=== PATIENT | female | born 1960 | race Caucasian/White ===

== ENCOUNTER → 2017-02-20 | Emergency (ER) | payer MEDICARE, MEDICAID ==
[2017-02-20 14:21] VITALS: BMI 22.4
[2017-02-20 14:46] VITALS: BP 105/71; PULSE 69; RESP 20; TEMP 98.4; O2SAT 95
[2017-02-20 15:34] LABS: BASO # 0.1 K/uL (0.0-0.2); BASO % 0.6 % (0.0-2.0); EOS # 0.1 K/uL (0.0-0.7); EOS % 0.6 % (0.0-4.0); HEMATOCRIT 38.2 % (34.0-47.0); LYMPH # 2.5 K/uL (1.0-4.3); LYMPH % 29.7 % (20.0-40.0); MEAN CORPUSCULAR HEMOGLOBIN 30.7 pg (27.0-31.0); MEAN CORPUSCULAR HGB CONC 33.7 g/dL (33.0-37.0); MONO # 0.6 K/uL (0.0-0.8); MONO % 6.6 % (0.0-10.0); NRBC % 0.1 % (0.0-2.0); WHITE BLOOD COUNT 8.5 K/uL (4.8-10.8)
[2017-02-20 15:35] LABS: MEAN CELL VOLUME 91.2 fL (81.0-99.0)
[2017-02-20 15:49] LABS: CHLORIDE 98 mmol/L (98-107)
[2017-02-20 15:50] LABS: POTASSIUM 3.7 mmol/L (3.6-5.2); SODIUM 139 mmol/L (132-148)
[2017-02-20 15:54] LABS: ALB/GLOB RATIO 1.1 (1.0-2.1); ALCOHOL SERUM 184 mg/dl (0-10); ALKALINE PHOSPHATASE 123 U/L (38-126); ALT/SGPT 71 U/L (9-52); AST/SGOT 85 U/L (14-36); BILIRUBIN,TOTAL 0.4 mg/dL (0.2-1.3); BLOOD UREA NITROGEN 19 mg/dL (7-17); CALCIUM 8.7 mg/dl (8.6-10.4); CARBON DIOXIDE 26 mmol/L (22-30); GFR AFRICAN-AMERICAN > 60; GLUCOSE,RANDOM 89 mg/dL (65-105); TOTAL PROTEIN 7.4 g/dL (6.3-8.3)
--- NOTE | 2017-02-20 16:55 | C.PDOC ---
History Of Present Illness 56 year old female presents to the ED with complaints of severe RUQ abdominal pain for the past 2 days. Patient states the pain radiates back with occasional vomiting. She was seen in [facility] last night for the same complaints and had a CT and US done and was told her "liver and gall bladder are swollen". It is unclear if the patient was discharged or left AMA. She reports she woke up with pain and drank alcohol which made it worse and prompted her visit. Denies diarrhea, fever, chills, back pain, or any other complaints at this time. Time Seen by Provider: 02/20/17 15:03 Chief Complaint (Nursing): Abdominal Pain History Per: Patient History/Exam Limitations: no limitations Onset/Duration Of Symptoms: Days Current Symptoms Are (Timing): Still Present Severity: Severe Location Of Pain/Discomfort: RUQ Radiation Of Pain To:: Back Quality Of Discomfort: "Pain" Associated Symptoms: Vomiting. denies: Fever, Chills, Back Pain, Urinary Symptoms Abnormal Vaginal Bleeding: No Past Medical History Reviewed: Historical Data, Nursing Documentation, Vital Signs Vital Signs: Last Vital Signs Temp 98.4 F 02/20/17 14:37 Pulse 69 02/20/17 14:37 Resp 20 02/20/17 14:37 BP 105/71 02/20/17 14:37 Pulse Ox 95 02/20/17 17:00 - Medical History PMH: Anxiety, Gastritis (NO LONGER ON MEDS), HTN, Hypercholesterolemia, Hypothyroidism, Migraine - [facility] Procedures APPLICATION OF SPLINT (02/23/15) CERVICAL SPINE X-RAY NEC (05/15/13) DX ULTRASOUND-HEAD/NECK (04/12/15) INJECT STEROID (05/15/13) INJECT/INFUSE NEC (06/28/14) INJECTION INTO JOINT (05/15/13) PERCUTAN NEEDLE BX OF THYROID GLAND (11/03/13) SPINAL CANAL INJECT NEC (05/15/13) Family History: States: Unknown Family Hx - Social History Hx Tobacco Use: No Hx Alcohol Use: Yes Hx Substance Use: No - Immunization History Hx Tetanus Toxoid Vaccination: Yes Hx Influenza Vaccination: Yes Hx Pneumococcal Vaccination: No Review Of Systems Except As Marked, All Systems Reviewed And Found Negative. Constitutional: Negative for: Fever, Chills Cardiovascular: Negative for: Chest Pain Respiratory: Negative for: Shortness of Breath Gastrointestinal: Positive for: Vomiting, Abdominal Pain (+RUQ abdominal pain radiating back). Negative for: Diarrhea Genitourinary: Negative for: Dysuria, Frequency Musculoskeletal: Negative for: Back Pain Physical Exam - Physical Exam Appears: Non-toxic, No Acute Distress Skin: Normal Color, Warm, Dry Head: Atraumatic, Normacephalic Eye(s): bilateral: Normal Inspection Oral Mucosa: Moist Chest: Symmetrical, No Deformity Cardiovascular: Rhythm Regular, No Murmur Respiratory: Normal Breath Sounds, No Accessory Muscle Use, No Rales, No Rhonchi , No Wheezing Gastrointestinal/Abdominal: Soft, Tenderness (+Mild epigastric and RUQ tenderness), No Distention, No Guarding, No Rebound Neurological/Psych: Oriented x3, Normal Speech, Normal Cognition ED Course And Treatment - Laboratory Results Result Diagrams: 02/20/17 15:22 02/20/17 15:16 O2 Sat by Pulse Oximetry: 95 (Room air) Pulse Ox Interpretation: Normal Progress Note: Abdomen Limited US and Blood work ordered and reviewed. patient treated with Ativan, Pepcid, Toradol, and Zofran. Medical Decision Making Medical Decision Making: Patient was given medication for pain and shortly after she decided to leave. Patient's father said he was be responsible for getting her home and patient signed AMA. Disposition Counseled Patient/Family Regarding: Need For Followup - Disposition Disposition: AGAINST MEDICAL ADVICE Disposition Time: 00:00 Condition: UNKNOWN - Clinical Impression Clinical Impression: Abdominal pain - Scribe Statement The provider has reviewed the documentation as recorded by the Scribe Magda Pelayo. Provider Attestation: All medical record entries made by the Baibsean were at my direction and personally dictated by me. I have reviewed the chart and agree that the record accurately reflects my personal performance of the history, physical exam, medical decision making, and the department course for this patient. I have also personally directed, reviewed, and agree with the discharge instructions and disposition.
--- NOTE | 2017-02-20 17:49 | US ---
HISTORY: RUQ abd pain COMPARISON: None. TECHNIQUE: Sonographic evaluation of the right upper quadrant of the abdomen. FINDINGS: LIVER: Measures 20.2 cm in length. Diffusely increased echogenicity of the liver parenchyma. Consistent with fatty infiltration. Smooth contour. No mass. No biliary dilatation. GALLBLADDER: Unremarkable. No gallstones. COMMON BILE DUCT: Measures 4 mm. No stones. No dilatation. PANCREAS: Limited visualization. RIGHT KIDNEY: Measures 10.7 cm in length. Normal echogenicity. No calculus, mass, or hydronephrosis. AORTA: No aneurysmal dilatation. IVC: Unremarkable. OTHER FINDINGS: None . IMPRESSION: Hepatomegaly with diffuse fatty infiltration of the liver. No evidence of cholelithiasis or cholecystitis.
== END | disposition left against medical advice (07) ==
LOC: C.ER 14:21
DX: R10.11 Right upper quadrant pain (principal)
CPT/HCPCS: 76705; 80053; 83690; 85025; 96374; 96375; 99283; G0480; J1885; J2060; J2405

== ENCOUNTER 2017-03-20 07:31 | Emergency (ER) | payer MEDICARE, MEDICAID ==
[2017-03-20 07:31] VITALS: BMI 22.4
[2017-03-20 07:38] VITALS: RESP 20
[2017-03-20] MEDS ORDERED: Oxycodone/Acetaminophen 5/325 mg Tab PO STA (08:13)
[2017-03-20] MEDS ORDERED: Oxycodone/Acetaminophen 5/325 mg Tab ONE (08:34)
--- NOTE | 2017-03-20 10:14 | C.PDOC ---
History Of Present Illness 56 y/o female presents to the ED complaining of left calf pain x 2 days. She notes that the pain started when she woke up. Patient denies any trauma/injury, chest pain, shortness of breath, fever, or other complaints. Patient reports history of similar "years ago" and states she was evaluated and found negative for DVT. Time Seen by Provider: 03/20/17 08:04 Chief Complaint (Nursing): Lower Extremity Problem/Injury History Per: Patient History/Exam Limitations: no limitations Onset/Duration Of Symptoms: Days (2), Persistent Current Symptoms Are (Timing): Still Present Recent travel outside of the [place]: No Past Medical History Reviewed: Historical Data, Nursing Documentation, Vital Signs Vital Signs: Last Vital Signs Temp 97.5 F L 03/20/17 11:23 Pulse 69 03/20/17 11:23 Resp 20 03/20/17 11:23 BP 133/88 03/20/17 11:23 Pulse Ox 96 03/20/17 13:33 - Medical History PMH: Anxiety, Gastritis (NO LONGER ON MEDS), HTN, Hypercholesterolemia, Hypothyroidism, Migraine Surgical History: No Surg Hx - [facility] Procedures APPLICATION OF SPLINT (02/23/15) CERVICAL SPINE X-RAY NEC (05/15/13) DX ULTRASOUND-HEAD/NECK (04/12/15) INJECT STEROID (05/15/13) INJECT/INFUSE NEC (06/28/14) INJECTION INTO JOINT (05/15/13) PERCUTAN NEEDLE BX OF THYROID GLAND (11/03/13) SPINAL CANAL INJECT NEC (05/15/13) Family History: States: No Known Family Hx - Social History Hx Tobacco Use: No Hx Alcohol Use: Yes Hx Substance Use: No - Immunization History Hx Tetanus Toxoid Vaccination: Yes Hx Influenza Vaccination: Yes Hx Pneumococcal Vaccination: No Review Of Systems Except As Marked, All Systems Reviewed And Found Negative. Constitutional: Negative for: Fever Cardiovascular: Negative for: Chest Pain Respiratory: Negative for: Shortness of Breath Musculoskeletal: Positive for: Leg Pain (left calf) Physical Exam - Physical Exam Appears: Non-toxic, No Acute Distress Skin: Normal Color, Warm, Dry Head: Atraumatic, Normacephalic Neck: Normal ROM Chest: Symmetrical Cardiovascular: Rhythm Regular Respiratory: Normal Breath Sounds, No Rales, No Rhonchi, No Wheezing Extremity: Normal ROM, Calf Tenderness (left), Capillary Refill (< 2 seconds), Swelling (mild, left calf), No Other (erythema) Pulses: Left Dorsalis Pedis: Normal, Right Dorsalis Pedis: Normal Neurological/Psych: Oriented x3, Normal Speech, Normal Cognition, Normal Motor, Normal Sensation ED Course And Treatment O2 Sat by Pulse Oximetry: 96 (ra) Pulse Ox Interpretation: Normal - CT Scan/US VDS Other Rad Studies (CT/US): Read By Radiologist, Radiology Report Reviewed CT/US Interpretation: Accession No. : [id number]. Patient Name / ID : GALE Rodriguez / [id number]. Exam Date : 03/20/2017 10:29:59 ( Approved ). Study Comment : Sex / Age : F / 56Y. Creator : Department, Vascular C. Dictator : Department, Vascular C. Surgical Aide : Buffing Machine Operator : Jean-Claude Cabrera MD. Approver2 : Report Date : 03/20/2017 10:58:43. My Comment : . PROCEDURE: Left Lower Extremity Venous Duplex Exam. HISTORY: Pain/swelling. PRIORS: Last exam 2015,normal. TECHNIQUE: Left common femoral, femoral, popliteal and posterior tibial, peroneal and great saphenous veins were evaluated. Flow was assessed with color Doppler, compressibility, assessment of phasic flow and augmentation response. Report prepared by ORACIO Marshall. FINDINGS: LEFT: 1. Common Femoral Vein: 1.1. Compressibility - Fully compressible: Thrombus - None : Flow - Phasic: Augmentation -Normal: Reflux - None. 2. Femoral Vein: 2.1. Compressibility - Fully compressible: Thrombus - None: Flow - Phasic: Augmentation -Normal: Reflux - None. 3. Popliteal Vein: 3.1. Compressibility - Fully compressible: Thrombus - None: Flow - Phasic: Augmentation -Normal: Reflux - None. 4. Posterior Tibial Vein: 4.1. Compressibility - Fully compressible: Thrombus - None: Flow - Phasic: Augmentation -Normal: Reflux - None. 5. Peroneal Vein: 5.1. Compressibility - Fully compressible: Thrombus - None: Flow - Phasic: Augmentation -Normal: Reflux - None. 6. Great Saphenous Vein: 6.1. Compressibility - Fully compressible: Thrombus - None: Flow - Phasic: Augmentation - Normal: Reflux - None. OTHER FINDINGS: IMPRESSION: No evidence of deep or superficial vein thrombosis of the left lower extremity with excellent venous flow. Normal valve function noted of the left side. Normal venous flow noted in the right common femoral vein. Progress Note: Patient states she cannot take NSAIDs. VDS was ordered and patient was given Percocet. Patient continues to complain of pain and is requesting stronger pain medication. Patient treated with Toradol IM and Valium PO. On reevaluation, patient reports improvement of pain. VDS negative for DVT. Patient was advised to follow up with PMD in 1-2 days and return to the ED at any time for new or concerning symptoms. Disposition - Disposition Disposition: HOME/ ROUTINE Disposition Time: 11:01 Condition: STABLE Additional Instructions: Follow up with your PMD within 1-2 days. return to ED if feel worse. Prescriptions: Ibuprofen [Motrin Tab] 600 mg PO Q8 #30 tab Famotidine [Pepcid] 20 mg PO BID #20 tab Methocarbamol [Robaxin] 2 tab PO QID #80 tab traMADol [Ultram] 50 mg PO Q6 #20 tab Instructions: Muscle Spasm (ED) - Clinical Impression Clinical Impression: Leg pain - PA / SCALLOP RAKER / Resident Statement MD/DO has reviewed & agrees with the documentation as recorded. - Scribe Statement The provider has reviewed the documentation as recorded by the Scribe (Shefali Mayo) All medical record entries made by the Scribe were at my direction and personally dictated by me. I have reviewed the chart and agree that the record accurately reflects my personal performance of the history, physical exam, medical decision making, and the department course for this patient. I have also personally directed, reviewed, and agree with the discharge instructions and disposition.
[2017-03-20 11:28] VITALS: BP 133/88; PULSE 69; TEMP 97.5
[2017-03-20 11:39] VITALS: O2SAT 96
--- NOTE | 2017-03-20 13:04 | VASCLAB ---
PROCEDURE: Left Lower Extremity Venous Duplex Exam. HISTORY: Pain/swelling PRIORS: Last exam 2016,normal. TECHNIQUE: Left common femoral, femoral, popliteal and posterior tibial, peroneal and great saphenous veins were evaluated. Flow was assessed with color Doppler, compressibility, assessment of phasic flow and augmentation response. Report prepared by ORACIO Marshall FINDINGS: LEFT: 1. Common Femoral Vein: 1.1. Compressibility - Fully compressible: Thrombus - None : Flow - Phasic: Augmentation -Normal: Reflux - None. 2. Femoral Vein: 2.1. Compressibility - Fully compressible: Thrombus - None: Flow - Phasic: Augmentation -Normal: Reflux - None. 3. Popliteal Vein: 3.1. Compressibility - Fully compressible: Thrombus - None: Flow - Phasic: Augmentation -Normal: Reflux - None. 4. Posterior Tibial Vein: 4.1. Compressibility - Fully compressible: Thrombus - None: Flow - Phasic: Augmentation -Normal: Reflux - None. 5. Peroneal Vein: 5.1. Compressibility - Fully compressible: Thrombus - None: Flow - Phasic: Augmentation -Normal: Reflux - None. 6. Great Saphenous Vein: 6.1. Compressibility - Fully compressible: Thrombus - None: Flow - Phasic: Augmentation - Normal: Reflux - None. OTHER FINDINGS: IMPRESSION: No evidence of deep or superficial vein thrombosis of the left lower extremity with excellent venous flow. Normal valve function noted of the left side. Normal venous flow noted in the right common femoral vein.
== END 2017-03-20 11:28 | disposition home or self-care (01) ==
LOC: C.ER 07:31
DX: M79.662 Pain in left lower leg (principal)
CPT/HCPCS: 93971; 96372; 99285; J1885

== ENCOUNTER 2018-01-26 11:49 | Emergency (ER) | payer OTHER ==
[2018-01-26 12:03] VITALS: BMI 21.9
--- NOTE | 2018-01-26 13:33 | C.PDOC ---
History Of Present Illness Pt states she tripped down a flight of stairs yesterday because she was wearing high heels. Denies LOC. - HPI Time Seen by Provider: 01/26/18 12:23 Chief Complaint (Nursing): Trauma History Per: Patient, Family Injury Occurred (Timing): Days Ago: (1) Location Of Injury: Right: Hand, Left: Chest (lower) Severity: Moderate Additional History Per: Prior Records - Fall Fall:Prior To Injury: Tripped Past Medical History Reviewed: Historical Data, Nursing Documentation, Vital Signs Vital Signs: Last Vital Signs Temp 98.5 F 01/26/18 12:03 Pulse 84 01/26/18 12:03 Resp 18 01/26/18 12:03 BP 155/89 H 01/26/18 12:03 Pulse Ox 98 01/26/18 12:03 - Medical History PMH: Anxiety, Gastritis (NO LONGER ON MEDS), Hypercholesterolemia, Hypothyroidism, Migraine Comment Only: HTN (PT DENIES) - [facility] Procedures APPLICATION OF SPLINT (02/23/15) CERVICAL SPINE X-RAY NEC (05/15/13) DX ULTRASOUND-HEAD/NECK (04/12/15) INJECT STEROID (05/15/13) INJECT/INFUSE NEC (06/28/14) INJECTION INTO JOINT (05/15/13) PERCUTAN NEEDLE BX OF THYROID GLAND (11/03/13) SPINAL CANAL INJECT NEC (05/15/13) Family History: States: Unknown Family Hx - Social History Hx Tobacco Use: No Hx Alcohol Use: Yes Hx Substance Use: No - Immunization History Hx Tetanus Toxoid Vaccination: Yes Hx Influenza Vaccination: Yes Hx Pneumococcal Vaccination: No Review Of Systems Except As Marked, All Systems Reviewed And Found Negative. Constitutional: Negative for: Fever, Weakness Respiratory: Negative for: Shortness of Breath, Hemoptysis Gastrointestinal: Negative for: Vomiting, Abdominal Pain Genitourinary: Negative for: Hematuria Musculoskeletal: Negative for: Neck Pain, Back Pain Skin: Positive for: Bruising. Negative for: Rash Neurological: Negative for: Weakness, Numbness, Seizures, Altered Mental Status , Headache Physical Exam - Physical Exam Appears: Non-toxic, No Acute Distress Skin: Normal Color, Warm, Dry, No Rash Head: Atraumatic, Normacephalic Eye(s): bilateral: Normal Inspection, PERRL, EOMI Neck: Normal ROM, No Midline Cervical Tenderness, No Step Off Deformity, Supple Chest: Symmetrical, No Deformity, Tenderness (left lower), No Ecchymosis, No Subcutaneous Emphysema Cardiovascular: Rhythm Regular Respiratory: Normal Breath Sounds, No Accessory Muscle Use Gastrointestinal/Abdominal: Soft, No Tenderness Back: No CVA Tenderness, No Vertebral Tenderness Extremity: Normal ROM, Tenderness (right hand, mild, with bruising), No Deformity, No Swelling Pulses: Right Radial: Normal Neurological/Psych: Oriented x3, Normal Motor, Normal Sensation ED Course And Treatment O2 Sat by Pulse Oximetry: 98 Pulse Ox Interpretation: Normal - Other Rad Right hand x-rays X-Ray: Interpreted by Me, Viewed By Me Interpretation: No acute fx or dislocation. Left rib series X-Ray: Interpreted by Me, Viewed By Me Interpretation: No PTX or displaced rib fracture. Reassessment Condition: Improved Disposition Counseled Patient/Family Regarding: Studies Performed, Diagnosis, Need For Followup, Rx Given - Disposition Disposition: HOME/ ROUTINE Disposition Time: 13:35 Condition: IMPROVED Additional Instructions: Follow up with your doctor. Return to the ER if you develop shortness of breath , worsening of symptoms or if you have any other concerns. Prescriptions: Naproxen 375 mg PO BID PRN #20 tablet PRN Reason: Pain, Moderate (4-7) Instructions: Bruised Rib (DC), Contusion (DC) Forms: [facility] (Turkmen) - Clinical Impression Clinical Impression: Contusion of left chest wall, Contusion of right hand
--- NOTE | 2018-01-26 14:05 | RAD ---
PROCEDURE: Right Hand Radiographs. HISTORY: Pain/bruising s/p fall yesterday COMPARISON: None. FINDINGS: BONES: No acute fracture. JOINTS: Degenerative changes. SOFT TISSUES: Normal. OTHER FINDINGS: None. IMPRESSION: No demonstrated fracture or dislocation.
--- NOTE | 2018-01-26 14:05 | RAD ---
PROCEDURE: Radiographs of the Chest and Left Ribs. HISTORY: Left anterior/lower chest wall pain s/p fall COMPARISON: Chest radiograph dated 10/14/2016. TECHNIQUE: Frontal radiograph of the chest and multiple oblique radiographs of the left ribs were obtained. FINDINGS: LEFT RIBS: No fracture or focal lesion visualized. LUNGS: Clear. PLEURA: No pneumothorax or pleural fluid. CARDIOVASCULAR: Normal sized heart. No pulmonary vascular congestion. OTHER FINDINGS: Calcified bilateral breast prostheses redemonstrated. IMPRESSION: Unremarkable radiographs of the chest and left ribs. No left rib fracture.
[2018-01-26 14:55] VITALS: BP 144/82; PULSE 86; RESP 16; TEMP 98.2; O2SAT 99
== END 2018-01-26 13:40 | disposition home or self-care (01) ==
LOC: C.ER 11:49
DX: S20.212A Contusion of left front wall of thorax, initial encounter (principal); S60.221A Contusion of right hand, initial encounter; W10.9XXA Fall (on) (from) unspecified stairs and steps, initial encounter; Y92.9 Unspecified place or not applicable
CPT/HCPCS: 71101; 73130; 96372; 99285; J1885